=== PATIENT | female | born 1940 | race Caucasian/White ===

== ENCOUNTER 2018-02-01 13:02 | Inpatient (IN) | payer MEDICARE, OTHER ==
[~2018-02-01] VITALS: Ht 167.6 cm; Wt 55.8 kg
[~2018-02-01 13:02] MED LIST: CARAFATE1 G1 ORAL; COMPAZINE10 MG ORAL; DICYCLOMINE HCL10 MG PO; DOCUSATE SODIU100 MG ORAL; DULCOLAX10 MG RC; LINZESS145 MCG PO; LOMOTIL TABLET1 EAC1 PO; MIRALAX17 G2 ORAL; NEURONTIN600 MG ORAL; OMEPRAZOLE20 M2 ORAL; OXYBUTYNIN CHLO10 MG PO; REMERON30 MG ORAL; ROXICODONE15 MG ORAL; TRAZODONE HCL50 MG ORAL; VITAMIN D1000 UNI1 ORAL; XANAX1 MG ORAL; ZOFRAN4 M3 ORAL
[2018-02-01 13:30] VITALS: BP 106/65
[2018-02-01] MEDS ORDERED: Miralax 17gm pkt ORAL PRN (15:32)
[2018-02-01] MEDS ORDERED: oxyCODONE HCL/Acetaminophen 5/325mg ORAL PRN (15:34)
--- NOTE | 2018-02-01 15:39 | Diagnostic Imaging Report ---
Indication: Trauma right knee pain and hip pain Technique: Continuous helical imaging of the right knee was performed in the transaxial plane. Coronal 2-D reformatted images were also generated. Study obtained in a Siemens Sensation [address] total DLP: 954.1 mGycm CTD/vol: 13.99,15.26 mGy Comparison: None Findings: There is no obvious acute fracture identified. There is a lateral compression plate and several screws in the distal femoral shaft extending to the condyles. The bones are osteopenic. There is no obvious malalignment. There is significant limitation due to streak artifact. IMPRESSION: No obvious acute fracture. Significant limitation due to streak artifact. Given the degree of artifact, plain film evaluation is recommended. The CT scanner at [facility] is accredited by the [employer] and the scans are performed using dose optimization techniques as appropriate to a performed exam including Automatic Exposure control.
--- NOTE | 2018-02-01 15:42 | Diagnostic Imaging Report ---
Indication: Hip pain Technique: continuous helical imaging in the transaxial plane was performed from the iliac crests to the pubic symphysis with attention to the right hip. Coronal 2-D reformatted images were also generated. Study obtained in a Siemens Sensation [address] total DLP: 954.1 mGycm CTD/vol: 13.99,15.26 mGy Comparison: None Findings: There is no evidence of an acute fracture or significant malalignment identified on this examination. Right cemented total hip prosthesis noted. There is suspicion of a periprosthetic fracture involving the right proximal femur. The fracture is seen in an oblique fashion from just below the femoral stem extending upwards to the subtrochanteric region in a nondisplaced fashion. The bones are osteopenic. No additional fractures are appreciated. Degenerative changes of the visualized lower lumbar spine demonstrated. There is an old fracture of the right pubis. Incidental findings include diverticula throughout the colon and calcification of the aortoiliac vessels. Atrophic uterus noted. IMPRESSION: Acute periprosthetic fracture of the right hip involving the proximal shaft and subtrochanteric region. Total hip prosthesis noted.. The CT scanner at [facility] is accredited by the [employer] and the scans are performed using dose optimization techniques as appropriate to a performed exam including Automatic Exposure control.
[2018-02-01] MEDS: Dicyclomine HCl 10mg/5ml oral soln ORAL PRN (15:51)
[2018-02-01 16:00] VITALS: BP 124/59
[2018-02-01] MEDS: ALPRAZolam 0.25mg tab ORAL PRN (19:46)
[2018-02-01 20:10] VITALS: BP 90/51
[2018-02-01] MEDS: TraZODone 50mg tab ORAL SCH (21:21)
[2018-02-01] MEDS: Heparin 5000 units/ml inj SUBQ SCH (21:56)
[2018-02-01] MEDS: Lyrica 75mg cap ORAL SCH (23:51)
[2018-02-02 00:09] VITALS: BP 113/56
--- NOTE | 2018-02-02 01:00 | Consultation ---
DATE OF CONSULTATION: 02/01/2018 CARDIOLOGY CONSULTATION CONSULTING PHYSICIAN: Reji Gomes M.D. REQUESTING PHYSICIAN: Rick Kay M.D. REASON FOR CONSULTATION: Preoperative cardiovascular evaluation. HISTORY OF PRESENT ILLNESS: This is a 77-year-old white female with prior history of right hip fracture with the prosthesis, who was seen by Dr. Kay today complaining of increasing pain of her right knee area. She was admitted to the hospital after also noting a fall with possible syncopal component. Her diagnostic studies included a CAT scan of the hip and knee, which revealed a periprosthetic acute fracture on the right hip. Orthopedic surgery is anticipated. Cardiovascular risk assessment is requested. PAST MEDICAL HISTORY: Osteoarthritis, osteoporosis, status post right hip replacement, fibromyalgia, peripheral neuropathy, hypertension, depression, anxiety, neurosis, history of stress incontinence, and status post cholecystectomy. MEDICATIONS: Prior to admission, reviewed and reconciled. ALLERGIES: Hydrocodone. SOCIAL HISTORY: Nonsmoker. No alcohol or substance abuse. FAMILY HISTORY: Noncontributory. REVIEW OF SYSTEMS: No fevers or chills. No loss of vision or hearing. No additional chest pain. No palpitations. Not clear that she lost consciousness, thinks she just "fell," because she lost her footing. She has nausea and vomiting. No melena or bright red blood per rectum. No change in bowel habits. She is incontinent, but this is not a new problem. There is no history of seizure or stroke. There is no history of diabetes or thyroid disorder. PHYSICAL EXAMINATION: VITAL SIGNS: Blood pressure 124/59, heart rate 63, respirations 18, and afebrile. HEENT: Normocephalic and atraumatic. Conjunctivae are pink. Sclerae are anicteric. Oropharynx clear. Mucous membranes moist. NECK: Supple. Jugular venous pressure is normal. LUNGS: Clear. CARDIAC: Regular rhythm and rate. Normal S1 and S2 with no murmur, rub, or gallop. ABDOMEN: Soft and nontender. EXTREMITIES: Good pulses. No edema. There is no bruising or open wound sites noted. LABORATORY DATA: EKG are pending. IMPRESSION: 1. Apparent acute periprosthetic right hip fracture. 2. History of hypertension. 3. History suggest flow-limiting coronary artery disease. 4. No signs of acute respiratory insufficiency. The patient is likely an acceptable candidate for orthopedic surgery without any increased perioperative cardiopulmonary risk under general anesthesia for her age group. FINAL RECOMMENDATIONS: We will follow once electrocardiogram, chest x-ray, and laboratory studies are available. Reji Gomes M.D. DR: RUBY JOB#: [id number] CC:
[2018-02-02] MEDS: ALPRAZolam 0.25mg tab ORAL PRN ×2 (03:58→16:22)
[2018-02-02 04:00] VITALS: BP 116/59
[2018-02-02] MEDS: Lyrica 75mg cap ORAL SCH ×2 (05:56→12:06)
[2018-02-02 06:14] LABS: BASOPHILS % (AUTO) 1.2 % (0.0-2.0); EOSINOPHILS % (AUTO) 4.3 % (0.0-3.0); HEMATOCRIT 35.8 % (37.0-47.0); HEMOGLOBIN 11.7 G/DL (12.0-16.0); MEAN CORPUSCULAR VOLUME 94 FL (80-99); MONOCYTES % (AUTO) 7.4 % (1.0-10.0); PLATELET COUNT 197 K/UL (150-450); RED BLOOD COUNT 3.81 M/UL (4.20-5.40); RED CELL DISTRIBUTION WIDTH 12.1 % (11.6-14.8); WHITE BLOOD COUNT 6.8 K/UL (4.8-10.8)
[2018-02-02 06:32] LABS: ALBUMIN 3.3 G/DL (3.4-5.0); ALKALINE PHOSPHATASE 74 U/L (46-116); ANION GAP 8 mmol/L (5-15); ASPARTATE AMINO TRANSFERASE 11 U/L (15-37); BILIRUBIN,TOTAL 0.4 MG/DL (0.2-1.0); BLOOD UREA NITROGEN 22 mg/dL (7-18); CALCIUM 9.4 MG/DL (8.5-10.1); CARBON DIOXIDE 28 MMOL/L (21-32); CHLORIDE 106 MMOL/L (98-107); CREATININE 0.7 MG/DL (0.55-1.30); SODIUM 142 MMOL/L (136-145)
[2018-02-02 06:42] LABS: ALANINE AMINOTRANSFERASE 16 U/L (12-78)
[2018-02-02 08:00] VITALS: BP 96/53
[2018-02-02] MEDS: Vitamin D 1000 IU Tab ORAL SCH (08:42)
[2018-02-02] MEDS: Heparin 5000 units/ml inj SUBQ SCH ×2 (08:45→23:12)
[2018-02-02] MEDS ORDERED: Docusate 100mg cap ORAL SCH (09:00)
--- NOTE | 2018-02-02 11:10 | Diagnostic Imaging Report ---
Indication: Dyspnea Comparison: 09/01/2016 A single view chest radiograph was obtained. Findings: No definite infiltrate or pulmonary vascular congestion identified. The heart is enlarged. The aorta is mildly enlarged consistent with atherosclerotic vascular disease. The bones are osteopenic. Impression: No acute disease
[2018-02-02 12:00] VITALS: BP 96/55
[2018-02-02] MEDS: Dicyclomine HCl 10mg/5ml oral soln ORAL PRN (12:07)
[2018-02-02 16:00] VITALS: BP 97/58
[2018-02-02] MEDS ORDERED: Lyrica 75mg cap ORAL SCH (18:45)
[2018-02-02] MEDS: Docusate 100mg cap ORAL SCH (18:50)
[2018-02-02 20:00] VITALS: BP 92/52
[2018-02-02] MEDS: HYDROcodone/Acetamin 10/325 tab ORAL PRN (22:33)
--- NOTE | 2018-02-02 23:01 | History and Physical Report ---
DATE OF ADMISSION: 02/01/2018 CHIEF COMPLAINT: Hip pain and knee pain. HISTORY OF PRESENT ILLNESS: The patient is a pleasant 77-year-old female. She has a history of chronic pain. She has a prior history of right femur fracture as well as a partial hip replacement on the right side. She has a history of chronic pain, osteoarthritis, depression, and anxiety. She presented to the office for complaints of generalized pain according to the patient and her accompanying nurse. She apparently had an episode where she fell onto her left buttocks. She was trying to reach for something in the closet. She denies any head trauma. The patient did have worsening pain in the right knee and the right hip for the last week, and then she presented to my office. After discussion with the patient and the patient's facility, she was noted to have significantly more pain and to be functionally weaker. She was directly admitted. On evaluation here, CT scan of the hip shows a periprosthetic hip fracture. The patient is otherwise without complaints. Denies fevers or chills. No chest pain. No shortness of breath. No heart palpitations. PAST MEDICAL HISTORY: As above. PAST SURGICAL HISTORY: As above. CURRENT MEDICATIONS: Reconciled and reviewed. ALLERGIES: Include aspirin, clarithromycin, penicillin, and sulfa. FAMILY HISTORY: Noncontributory. SOCIAL HISTORY: There is no known history of tobacco, ethanol, or drugs. REVIEW OF SYSTEMS: GENERAL: No fever or chills. HEENT: No headaches or visual changes. CARDIOPULMONARY: No chest pain or shortness of breath. GASTROINTESTINAL: No nausea or vomiting. GENITOURINARY: No urgency or frequency. MUSCULOSKELETAL: Positive joint pains, mostly the right knee and right hip. NEUROLOGIC: No evidence of seizures. PHYSICAL EXAMINATION: VITAL SIGNS: Temperature 97.6, pulse 64, respirations 20, and blood pressure 96/53. GENERAL: The patient is a well-developed, thin, chronically ill-appearing female, in no apparent distress. She is awake, alert, and oriented x4. NECK: Supple. HEART: Regular rate and rhythm. LUNGS: Lungs are clear. ABDOMEN: Soft, nontender, and nondistended. EXTREMITIES: Without clubbing or cyanosis. The patient has pain in the right hip and right knee. The right knee appears somewhat swollen. Passive and active range of motion is limited mostly due to pain. LABORATORY AND DIAGNOSTIC DATA: White count 7, hemoglobin 11, hematocrit 35, platelet count of 197,000. Sodium 142, potassium is 4, and creatinine was 0.7. INR was 1. ASSESSMENT: This is am unfortunate female, admitted with complaints of right periprosthetic hip fracture. PROBLEM LIST: 1. Right periprosthetic hip fracture. 2. History of chronic pain. 3. Fibromyalgia. 4. Osteoarthritis. 5. Anxiety. PLAN: Cardiology clearance. Follow up EKG. Orthopedics consultation was obtained. Results were discussed with the patient as well as the patient's son over the phone. The patient likely will need surgery. We are currently awaiting Orthopedics evaluation. Rick Kay M.D. DR: DIANE JOB#: [id number] CC:
[2018-02-02] MEDS: TraZODone 50mg tab ORAL SCH (23:11)
--- NOTE | 2018-02-02 23:46 | Progress Note ---
DATE: 02/02/2018 CARDIOLOGY PROGRESS NOTE SUBJECTIVE: The patient has complaints of pain. No shortness of breath. No chest pain. OBJECTIVE: VITAL SIGNS: Blood pressure 96/53, pulse 64, respiratory rate 20, and afebrile. NECK: Supple. LUNGS: Clear. CARDIAC: Regular. Normal S1, S2. ABDOMEN: Soft. EXTREMITIES: No edema. LABORATORY AND DIAGNOSTIC DATA: EKG reveals sinus rhythm with no abnormalities. White count 6.8, hemoglobin 11.7. Chemistry panel within normal limits. Albumin 3.3, BUN 22. Chest x-ray reveals no acute process. IMPRESSION: 1. Periprosthetic hip fracture on the right. 2. Mild prerenal azotemia. 3. Low blood pressure due to pain medications. 4. No signs of hemodynamically significant structural heart disease. PLAN: 1. Stable for orthopedic surgery with general anesthesia and no anticipated increase in perioperative cardiopulmonary risk. 2. Continue DVT prophylaxis. 3. Volume support by IV route and pain control with respiratory hygiene. Reji Gomes M.D. DR: JAYLENE JOB#: [id number] CC:
[2018-02-03] VITALS: BP 113/58
--- NOTE | 2018-02-03 01:46 | Consultation ---
DATE OF CONSULTATION: 02/02/2018 CONSULTING PHYSICIAN: Rivera Peterson M.D. REASON FOR CONSULTATION: Right thigh pain. HISTORY OF PRESENT ILLNESS: The patient is a 77-year-old female, who several years ago underwent a surgery for right hip fracture. She had a cemented femoral component placed. She subsequently in 2012 sustained a distal femur fracture for which she had open reduction and internal fixation. Since 2013 surgery, the patient reports she has had continued pain and inability to walk properly. As a result of this, she reports she was getting something from her closet eight days ago when she had a mechanical fall. She subsequently had pain, went to the emergency room at an outside facility where she was apparently told that there was no fracture. She subsequently had continued pain, went to see Dr. Kay, who subsequently sent her to the emergency room where a CAT scans revealed a right periprosthetic femur fracture. I was subsequently consulted. The patient reports her pain is isolated in the right thigh region. She also has pain in the right knee joint. PAST MEDICAL HISTORY: Significant for fibromyalgia, peripheral neuropathy, hypertension, depression, anxiety neurosis, and history of stress incontinence. PAST SURGICAL HISTORY: As above. MEDICATIONS: Well documented in the medical chart. ALLERGIES: Hydrocodone. PHYSICAL EXAMINATION: GENERAL: This is an elderly patient, in no acute distress. VITAL SIGNS: Temperature 97.6, pulse 65, and blood pressure 97/58. EXTREMITIES: Evaluation of the right lower extremity reveals no significant swelling in the right thigh. She does have tenderness along the proximal femur to palpation. She has tenderness in the right proximal femur. There is range of motion of the right hip and right knee. There is a laterally based incision along the distal femur, which is fully healed. There is no erythema or warmth around the right knee joint. The calf is soft. She has intact motor and sensory function of the right foot. RADIOLOGIC DATA: There are no x-rays available for review. A CT scan of the right hip was reviewed. There is evidence of a right hip hemiarthroplasty with a cemented femoral component. There appears to be a nondisplaced fracture line, which starts at the tip of the femoral prosthesis works its way proximally and exists laterally in the subtrochanteric region. The fracture is nondisplaced. The femoral prosthesis does appear to be well fixed. More distally, there is what appears to be a distal femoral plate with a distal femur fracture, which is well fixed and well healed. There is no acute fracture distally. IMPRESSION: Right periprosthetic femur fracture. PLAN: At the present time, the fracture appears to be nondisplaced and the femoral component appears to be well fixed. I would recommend non-operative treatment of this fracture with touchdown weightbearing and physical therapy for consultation along with pain control. If the fracture continues to be nondisplaced, I do think it will heal over a period of 6 to 8 weeks or if there is any displacement or continued severe pain in the future, which could mean that the fracture is not healing, she may need surgical intervention in the future. I did discuss this in detail with the patient and her son. So, at the present time, I would recommend non-operative treatment of this fracture. Rivera Peterson M.D. DR: EMIR JOB#: [id number] CC:
[2018-02-03] MEDS ORDERED: Lyrica 75mg cap ORAL SCH ×2 (02:00→08:30)
[2018-02-03 04:00] VITALS: BP 113/57
--- NOTE | 2018-02-03 07:27 | General Progress Note ---
Assessment/Plan Problem List: (1) Hip fracture ICD Codes: S72.009A - Fracture of unspecified part of neck of unspecified femur , initial encounter for closed fracture SNOMED: 339592178 Status: stable Assessment/Plan pain rx adjusted toe touch only needs snf Subjective ROS Limited/Unobtainable: No Constitutional: Reports: malaise, weakness HEENT: Reports: no symptoms Cardiovascular: Reports: no symptoms Respiratory: Reports: no symptoms Gastrointestinal/Abdominal: Reports: no symptoms Genitourinary: Reports: no symptoms Neurologic/Psychiatric: Reports: anxiety Endocrine: Reports: no symptoms Hematologic/Lymphatic: Reports: no symptoms Allergies: Coded Allergies: ASPIRIN (Verified Allergy, Unknown, 09/01/16) CLARITHROMYCIN (Verified Allergy, Unknown, 09/01/16) PENICILLINS (Verified Allergy, Unknown, 09/01/16) SULFA (SULFONAMIDE ANTIBIOTICS) (Verified Allergy, Unknown, 09/01/16) All Systems: reviewed and negative except above Subjective orthopedics appreciated. pt requested change of pain rx to norco. pain not well controlled. Objective Last 24 Hour Vital Signs Date Time Temp Pulse Resp B/P (MAP) Pulse Ox O2 Delivery O2 Flow Rate FiO2 02/03/18 04:00 97.6 78 18 113/57 93 Room Air 97.6 02/03/18 00:00 97.6 66 20 113/58 94 Room Air 97.6 02/02/18 23:10 97.8 02/02/18 20:00 97.8 67 16 92/52 94 Room Air 97.8 02/02/18 16:00 97.6 65 17 97/58 96 97.6 02/02/18 12:00 97.0 66 16 96/55 97 97.0 02/02/18 08:00 97.6 64 20 96/53 96 Room Air 97.6 Intake and Output 02/02/18 02/03/18 19:00 07:00 Intake Total 650 ml 500 ml Output Total 600 ml Balance 650 ml -100 ml Intake Oral 250 ml 500 ml IV Total 400 ml Output Urine Total 600 ml # Voids 1 Height (Feet): 5 Height (Inches): 6.00 Weight (Pounds): 123 General Appearance: WD/WN Neck: supple Cardiovascular: regular rhythm Respiratory/Chest: chest wall non-tender, lungs clear, normal breath sounds Abdomen: normal bowel sounds, non tender, soft, no organomegaly Edema: no edema noted Arm (L), no edema noted Arm (R), no edema noted Leg (L), no edema noted Leg (R), no edema noted Pedal (L), no edema noted Pedal (R), no edema noted Generalized CHANTALE SMITH February 03, 2018 07:27
[2018-02-03 08:00] VITALS: BP 118/65
[2018-02-03] MEDS: ALPRAZolam 0.25mg tab ORAL PRN ×2 (08:21→17:18)
[2018-02-03] MEDS: Vitamin D 1000 IU Tab ORAL SCH (08:21)
[2018-02-03] MEDS: Dicyclomine HCl 10mg/5ml oral soln ORAL PRN (11:00)
[2018-02-03] MEDS: Docusate 100mg cap ORAL SCH ×2 (11:21→17:18)
[2018-02-03] MEDS: Heparin 5000 units/ml inj SUBQ SCH (11:22)
[2018-02-03 12:00] VITALS: BP 109/67
[2018-02-03] MEDS: Lyrica 75mg cap ORAL SCH ×2 (13:50→20:51)
[2018-02-03 16:00] VITALS: BP 114/58
[2018-02-03 20:48] VITALS: BP 131/70
[2018-02-03] MEDS: TraZODone 50mg tab ORAL SCH (21:00)
[2018-02-03] MEDS ORDERED: Heparin 5000 units/ml inj SUBQ SCH (21:00)
[2018-02-04] VITALS (7 sets, daily range): BP systolic 119–142; BP diastolic 62–82
[2018-02-04] MEDS: Lyrica 75mg cap ORAL SCH ×4 (02:43→20:30)
--- NOTE | 2018-02-04 08:00 | General Progress Note ---
Assessment/Plan Problem List: (1) Hip fracture ICD Codes: S72.009A - Fracture of unspecified part of neck of unspecified femur , initial encounter for closed fracture SNOMED: 238216901 Status: stable, progressing Assessment/Plan pain rx adjusted toe touch only nonsurgical rx dvt prophylaxis needs snf Subjective ROS Limited/Unobtainable: No Constitutional: Reports: malaise, weakness HEENT: Reports: no symptoms Cardiovascular: Reports: no symptoms Respiratory: Reports: no symptoms Gastrointestinal/Abdominal: Reports: no symptoms Genitourinary: Reports: no symptoms Neurologic/Psychiatric: Reports: no symptoms Endocrine: Reports: no symptoms Hematologic/Lymphatic: Reports: no symptoms Allergies: Coded Allergies: ASPIRIN (Verified Allergy, Unknown, 09/01/16) CLARITHROMYCIN (Verified Allergy, Unknown, 09/01/16) PENICILLINS (Verified Allergy, Unknown, 09/01/16) SULFA (SULFONAMIDE ANTIBIOTICS) (Verified Allergy, Unknown, 09/01/16) All Systems: reviewed and negative except above Subjective no events. c/o pain. currently resting. pain appears well controlled. Objective Last 24 Hour Vital Signs Date Time Temp Pulse Resp B/P (MAP) Pulse Ox O2 Delivery O2 Flow Rate FiO2 02/04/18 04:54 97.7 71 18 127/74 95 97.7 02/04/18 00:00 97.6 69 17 126/68 95 97.6 02/03/18 20:48 97.7 78 18 131/70 94 97.7 02/03/18 18:55 97.6 02/03/18 16:07 97.6 02/03/18 16:00 97.4 70 19 114/58 92 Room Air 97.4 02/03/18 15:08 97.6 02/03/18 14:49 97.6 02/03/18 13:50 97.6 02/03/18 12:00 97.2 71 19 109/67 92 Room Air 97.2 02/03/18 11:00 97.6 02/03/18 09:21 97.6 02/03/18 08:22 97.6 02/03/18 08:00 97.6 69 18 118/65 92 Room Air 97.6 Intake and Output 02/03/18 02/04/18 19:00 07:00 Intake Total 1650 ml 1580 ml Balance 1650 ml 1580 ml Intake Oral 360 ml 480 ml IV Total 1290 ml 1100 ml # Voids 2 12 Height (Feet): 5 Height (Inches): 6.00 Weight (Pounds): 123 General Appearance: WD/WN, alert Neck: supple Cardiovascular: normal rate, regular rhythm Respiratory/Chest: chest wall non-tender, lungs clear, normal breath sounds Edema: no edema noted Arm (L), no edema noted Arm (R), no edema noted Leg (L), no edema noted Leg (R), no edema noted Pedal (L), no edema noted Pedal (R), no edema noted Generalized CAHNTALE SMITH February 04, 2018 08:00
[2018-02-04] MEDS: Docusate 100mg cap ORAL SCH ×2 (08:56→18:00)
[2018-02-04] MEDS: Vitamin D 1000 IU Tab ORAL SCH (08:56)
[2018-02-04] MEDS: Xarelto 10mg tab ORAL SCH (09:00)
[2018-02-04] MEDS ORDERED: D5 1/2NS 1000ml IV ONE (11:11)
[2018-02-04] MEDS: ALPRAZolam 0.25mg tab ORAL PRN (13:35)
[2018-02-04] MEDS: Dicyclomine HCl 10mg/5ml oral soln ORAL PRN (14:50)
[2018-02-04] MEDS: HYDROcodone/Acetamin 10/325 tab ORAL PRN ×2 (17:48→17:50)
[2018-02-04] MEDS: TraZODone 50mg tab ORAL SCH (21:00)
[2018-02-05 00:19] VITALS: BP 121/65
[2018-02-05] MEDS: Lyrica 75mg cap ORAL SCH ×4 (02:24→20:09)
--- NOTE | 2018-02-05 03:30 | Progress Note ---
DATE: 02/04/2018 CARDIOLOGY PROGRESS NOTE SUBJECTIVE: The patient's pain is better controlled. She is at bed rest. She is to remain with the toe-touch activities only for the next four to six weeks. OBJECTIVE: VITAL SIGNS: Blood pressure 127/74, pulse 71, and respirations 18. NECK: Supple. LUNGS: Clear. CARDIAC: Regular rhythm and rate. Normal S1, S2 with no murmur. ABDOMEN: Soft. EXTREMITIES: Revealed no edema. Good distal pulses. IMPRESSION: 1. Periprosthetic hip fracture on the right. 2. Acute and chronic pain. 3. Mild protein-calorie malnutrition. PLAN: 1. Maintain adequate hydration. 2. Pain control. 3. DVT prophylaxis. Reji Gomes M.D. DR: RUBY JOB#: [id number] CC:
[2018-02-05 04:38] VITALS: BP 120/71
[2018-02-05] MEDS: ALPRAZolam 0.25mg tab ORAL PRN ×3 (05:31→20:28)
[2018-02-05] MEDS ORDERED: XARELTO10 MG ORAL (07:52)
[2018-02-05] MEDS ORDERED: PERCOCET 10-321 EACH ORAL (07:52)
[2018-02-05 08:00] VITALS: BP 139/83
[2018-02-05] MEDS: Xarelto 10mg tab ORAL SCH (08:13)
[2018-02-05] MEDS: Vitamin D 1000 IU Tab ORAL SCH (08:13)
[2018-02-05] MEDS: Docusate 100mg cap ORAL SCH ×2 (08:13→18:00)
[2018-02-05 12:00] VITALS: BP 132/80
[2018-02-05 16:00] VITALS: BP 123/64
[2018-02-05 20:00] VITALS: BP 123/82
[2018-02-05] MEDS: TraZODone 50mg tab ORAL SCH (20:09)
[2018-02-05] MEDS: Dicyclomine HCl 10mg/5ml oral soln ORAL PRN (20:30)
[2018-02-06 00:37] VITALS: BP 121/73
--- NOTE | 2018-02-06 02:00 | Progress Note ---
DATE: 02/05/2018 CARDIOLOGY PROGRESS NOTE SUBJECTIVE: The patient is at bedrest. No chest pain. No shortness of breath. She continues to complain of hip pain. OBJECTIVE: VITAL SIGNS: Blood pressure 123/82, pulse 80, respiratory rate 17, and afebrile. LUNGS: Clear. CARDIAC: Regular. ABDOMEN: Soft. EXTREMITIES: No or edema. IMPRESSION: 1. Periprosthetic hip fracture on the right. 2. Immobility. 3. Deep venous thrombosis risk. 4. Acute and chronic pain. PLAN: 1. Four weeks of limited mobility. 2. Aggressive DVT prophylaxis with Lovenox. 3. Monitor clinical parameters. Reji Gomes M.D. DR: SAMANTHA JOB#: [id number] CC:
[2018-02-06] MEDS: Lyrica 75mg cap ORAL SCH ×3 (02:14→14:46)
[2018-02-06 04:22] VITALS: BP 124/68
[2018-02-06 08:00] VITALS: BP 114/65
[2018-02-06] MEDS: Docusate 100mg cap ORAL SCH ×3 (09:00→18:26)
[2018-02-06] MEDS: Xarelto 10mg tab ORAL SCH (09:13)
[2018-02-06] MEDS: Vitamin D 1000 IU Tab ORAL SCH (09:13)
[2018-02-06] MEDS: ALPRAZolam 0.25mg tab ORAL PRN ×2 (09:49→18:12)
[2018-02-06] MEDS: Dicyclomine HCl 10mg/5ml oral soln ORAL PRN ×2 (10:02→18:13)
[2018-02-06 12:00] VITALS: BP 90/59
--- NOTE | 2018-02-06 15:01 | Cardiology Report ---
APPROVED REPORT EKG Measurement Heart [id number] Normal sinus rhythm Normal ECG
[2018-02-06 16:00] VITALS: BP 115/73
--- NOTE | 2018-02-07 03:15 | Progress Note ---
DATE: 02/06/2018 CARDIOLOGY PROGRESS NOTE SUBJECTIVE: The patient has no new complaints. Pain is better controlled. Low blood pressure reading was recorded. The patient was not dizzy. OBJECTIVE: VITAL SIGNS: Blood pressure 90/59 earlier, now 115/73, heart rate 83, and respiratory rate 18. NECK: Supple. LUNGS: Clear. CARDIAC: Regular. Wound site clean. EXTREMITIES: No edema. Digits are well perfused. IMPRESSION: 1. No signs of hypoperfusion or clinically significant hypotensive episodes. 2. Stable postoperative cardiovascular parameters to proceed with rehabilitation following hip fracture. We would monitor volume status closely as well as clinically significant orthostatic signs. Discharge medication regimen reviewed and reconciled. Reji Gmoes M.D. DR: CHARLETTE JOB#: [id number] CC:
--- NOTE | 2018-02-07 04:00 | Discharge Summary ---
DATE OF ADMISSION: 02/01/2018 DATE OF DISCHARGE: 02/06/2018 ADMISSION DIAGNOSES: 1. Mechanical fall. 2. Periprosthetic right hip fracture. HOSPITAL COURSE: The patient is a pleasant female who presented to the office initially with complaints of pain in the right knee and right hip. She has prior history of partial hip replacement. She was directly admitted. She had a CAT scan of the hip that showed a periprosthetic hip fracture. Orthopedics consultation was obtained and it was recommended the patient be treated nonsurgically. The plan of care was discussed with the patient as well as the patient's son who was agreeable with nonsurgical management. She will be discharged to a long term facility for rehabilitation. She will follow up with Orthopedics in two weeks with repeat x-ray to assess her healing. She is currently toe-touch only. DISCHARGE MEDICATIONS: Please see discharge medication list for discharge medications. DIET: Regular diet. ACTIVITY: Ad-prashanth. DISPOSITION: The patient to be discharged to a long term facility and followup in one to two days. Rick Kay M.D. DR: JAYRO JOB#: [id number] CC:
== END 2018-02-06 19:35 | DRG 560 ==
LOC: 3E 13:02
DX: M97.01XA Periprosthetic fracture around internal prosthetic right hip joint, initial encounter (principal); E44.1 Mild protein-calorie malnutrition; Z68.1 Body mass index [BMI] 19.9 or less, adult; M79.7 Fibromyalgia; M19.90 Unspecified osteoarthritis, unspecified site; F41.9 Anxiety disorder, unspecified; M81.0 Age-related osteoporosis without current pathological fracture; I10 Essential (primary) hypertension; G62.9 Polyneuropathy, unspecified; F32.9 Major depressive disorder, single episode, unspecified; Z88.6 Allergy status to analgesic agent; W19.XXXA Unspecified fall, initial encounter; Y92.009 Unspecified place in unspecified non-institutional (private) residence as the place of occurrence of the external cause; Z88.0 Allergy status to penicillin; Z88.2 Allergy status to sulfonamides; N39.3 Stress incontinence (female) (male)
CPT/HCPCS: 36415; 71045; 80053; 84443; 84484; 85025; 85610; 85730; 93005

== ENCOUNTER 2019-03-11 18:00 | Inpatient (IN) | payer MEDICARE, OTHER ==
[~2019-03-11] VITALS: Ht 167.6 cm; Wt 75.5 kg
[~2019-03-11 18:00] MED LIST changes: +PERCOCET 10-321 EACH ORAL; +XARELTO10 MG ORAL
[2019-03-11 20:00] VITALS: BP 138/76
--- NOTE | 2019-03-11 20:30 | NUR ---
NURSE NOTES: Received patient from [facility], transport personnel. Patient AAO x 4. Patient breathing evenly and unlabored without signs of distress,discomfort, and SOB. Patient has cellulitis on the right knee with warmth, swelling, and redness and also past surgical scars. Otherwise skin is intact with dryness. Patient was transferred from [facility] to the bed by ambulating with staff assistance. Patient bed was placed at the lowest level with bed alarm and brakes on. Patient did not want the staff to inspect her personal belongings. All the belongings are kept by her bedside. Called for Dr. Kay to confirm the orders for the patient. Dr. Gomes received the call and confirm to continue on with the orders from [facility] and that updates will by made by Dr. Kay tomorrow morning. Call light was placed within reach. VS: 98.3 F, HR 78, RR:17, BP 138/76, O2 97 on a room air.
[2019-03-11] MEDS ORDERED: ARTIFICIAL TEA1 EAC2 OP (21:43)
[2019-03-11] MEDS ORDERED: ACETAMINOPHEN500 M5 ORAL (21:43)
[2019-03-11] MEDS ORDERED: MILK OF MA400 MG/51 ORAL (21:53)
[2019-03-11] MEDS ORDERED: OXYCODONE-ACET1 EAC3 ORAL (21:53)
[2019-03-11] MEDS ORDERED: DETROL LA4 MG ORAL (21:53)
[2019-03-11] MEDS ORDERED: MYRBETRIQ25 MG PO (21:53)
[2019-03-11] MEDS ORDERED: ASPIRIN81 MG ORAL (21:53)
[2019-03-11] MEDS ORDERED: PAXIL40 MG ORAL (21:53)
[2019-03-11] MEDS ORDERED: SUCRALFATE1 GM/10 ML PO (21:53)
[2019-03-11] MEDS ORDERED: ROBAXIN500 MG PO (21:53)
[2019-03-11] MEDS ORDERED: LYRICA75 M1 ORAL (21:53)
[2019-03-11] MEDS ORDERED: BENADRYL25 M3 PO (21:53)
[2019-03-11] MEDS ORDERED: NORCO 5-325 TA1 EACH ORAL (21:53)
[2019-03-11] MEDS ORDERED: Dicyclomine 10mg Cap ORAL PRN (22:00)
[2019-03-11] MEDS ORDERED: Milk of Magnesia 30ml Ud ORAL PRN (22:00)
[2019-03-11] MEDS ORDERED: Lacri-Lube Opth Oint 3.5gm BOTH EYES PRN (22:00)
[2019-03-11] MEDS ORDERED: Acetaminophen 500mg (ES) tab ORAL PRN (22:00)
[2019-03-11] MEDS ORDERED: Lomotil 2.5mg tab ORAL PRN (22:00)
[2019-03-11] MEDS ORDERED: HYDROcodone/Acetamin 5/325 tab ORAL PRN (22:00)
[2019-03-11] MEDS ORDERED: Docusate 100mg cap ORAL PRN (22:00)
[2019-03-11] MEDS ORDERED: Methocarbamol 500mg tab ORAL PRN (22:00)
[2019-03-11] MEDS: ALPRAZolam 0.5mg tab ORAL PRN (23:00)
[2019-03-11] MEDS: TraZODone 50mg tab ORAL SCH (23:34)
[2019-03-12] VITALS: BP 133/75
[2019-03-12] MEDS: oxyCODONE HCL/Acetaminophen 5/325mg ORAL PRN ×2 (02:03→17:30)
[2019-03-12 04:00] VITALS: BP 135/75
[2019-03-12] MEDS: Sucralfate 1gm tab ORAL SCH ×3 (05:52→16:30)
[2019-03-12] MEDS ORDERED: Morphine Sulfate 2mg/ml Inj(IV/IM USE ONLY) IVP PRN (06:30)
[2019-03-12 06:50] LABS: HEMATOCRIT 37.2 % (37.0-47.0); HEMOGLOBIN 12.1 G/DL (12.0-16.0); MEAN CORPUSCULAR VOLUME 88 FL (80-99); PLATELET COUNT 183 K/UL (150-450); RED BLOOD COUNT 4.22 M/UL (4.20-5.40); RED CELL DISTRIBUTION WIDTH 13.8 % (11.6-14.8); WHITE BLOOD COUNT 3.2 K/UL (4.8-10.8)
--- NOTE | 2019-03-12 07:35 | NUR ---
HAND-OFF: Report given to COLIN Garcia.
[2019-03-12 08:00] VITALS: BP 96/52
--- NOTE | 2019-03-12 08:07 | NUR ---
NURSE NOTES: Received report from Minsu RN. Patient is awake alert and oriented x4, no sitting up in bed eating breakfast, no acute distress noted. Patient did not rate her pain in right knee but states "it's better" and is not requesting pain medication at this time. Patient updated on plan of care for the day. Fall precautions maintained. Side rails upx3, bed low and locked, bed alarm armed, call light in reach, patient reminded to call for assistance before getting OOB. Will continue to monitor.
[2019-03-12] MEDS ORDERED: Aspirin Baby 81mg ORAL SCH (09:00)
[2019-03-12] MEDS: Heparin 5000 units/ml inj SUBQ SCH ×2 (09:37→20:55)
[2019-03-12] MEDS: Miralax 17gm pkt ORAL SCH (09:38)
[2019-03-12] MEDS: PARoxetine 20mg tab ORAL SCH (09:38)
[2019-03-12] MEDS: Vitamin D 1000 IU Tab ORAL SCH (09:38)
[2019-03-12] MEDS: Tolterodine 2mg tab ORAL SCH (09:38)
[2019-03-12] MEDS: Lyrica 75mg cap ORAL SCH ×3 (09:39→18:46)
[2019-03-12 12:00] VITALS: BP 114/68
--- NOTE | 2019-03-12 12:05 | NUR ---
CASE MANAGEMENT:REVIEW 78 YR OLD FEMALE DIRECTLY ADMITTED SI: INTRACTABLE PAIN. CELLULITIS 98.3 78 17 138/76 97% ON RA IS: PAXIL PO QD LYRICA PO TID HEPARIN SQ Q12 CARAFATE PO TID IV MORPHINE Q4HRS PRN PERCOCET PO Q6HRS PRN : DIRECTLY ADMITTED TO MED[facility]URG [facility]
--- NOTE | 2019-03-12 12:11 | NUR ---
INTERQUAL CRITERIA MET FOR OBSERVATION
[2019-03-12 16:00] VITALS: BP 106/60
--- NOTE | 2019-03-12 16:53 | NUR ---
NURSE NOTES: Patient has refused all x-rays and venous duplex. Explained to patient the risks of refusing both, patient reports she understands the risks, but still refuses both.
--- NOTE | 2019-03-12 17:15 | History and Physical Report ---
DATE OF ADMISSION: 03/11/2019 CHIEF COMPLAINT: Right-sided chest pain, right leg pain and swelling, intractable pain. HISTORY OF PRESENT ILLNESS: The patient is a 78-year-old female, well known to me. She has a history of degenerative disk disease and osteoarthritis. She is status post right hip revision and right total knee replacement several months ago. She had been doing relatively well until recently when she had worsening pain in the right leg. She was unable to participate in any therapy. She complained of right-sided chest pain as well as some shortness of breath. The symptoms have been intermittent, but the right leg; thigh pain has gotten worse to the point where the patient has been unable to ambulate or bear any weight. She denies any trauma. No fevers or chills. In light of her intractable pain, she is admitted for further evaluation and care. PAST MEDICAL HISTORY: As above. History of fibromyalgia. PAST SURGICAL HISTORY: Includes history of hip ORIF, knee replacement surgery. CURRENT MEDICATIONS: Reconciled and reviewed. ALLERGIES: , penicillin, and sulfa. FAMILY HISTORY: Noncontributory. SOCIAL HISTORY: The patient denies any history of tobacco, ethanol, or drugs. REVIEW OF SYSTEMS: GENERAL: No fever or chills. HEENT: No headaches or visual changes. CARDIOPULMONARY: Positive right-sided chest pain. Mild shortness of breath. GASTROINTESTINAL: No nausea or vomiting. GENITOURINARY: No urgency or frequency. MUSCULOSKELETAL: Positive right knee pain and hip pain. NEUROLOGIC: No evidence of seizures. PHYSICAL EXAMINATION: VITAL SIGNS: Temperature 98.3, pulse of 78, respirations 17, and blood pressure 132/76. GENERAL: The patient is a well-developed female, in moderate amount of distress. She is somewhat somnolent and sleepy and slow to respond to questions. HEENT: Her pupils are equal, round, and reactive to light . NECK: Supple. HEART: Regular rate and rhythm. LUNGS: Clear. ABDOMEN: Soft, nontender, and nondistended. EXTREMITIES: Without clubbing or cyanosis. The patient has severe pain with any range of motion in the right hip and knee. LABORATORY DATA: Labs are pending. ASSESSMENT: This is a 78-year-old female complaints of severe intractable pain, unclear etiology with concern about a possible new fracture, doubt a septic arthritis. PLAN: 1. X-rays of the right hip and knee. 2. IV pain medications around the clock. 3. Consider pain management consultation. 4. Check venous duplex of the legs. 5. Follow up troponin level. 6. Orthopedic consultation. Rick Kay M.D. DR: MADDY JOB#: [id number] CC:
[2019-03-12 19:21] LABS: APPEARANCE,URINE CLOUDY; BILIRUBIN, URINE NEGATIVE (NEGATIVE); GLUCOSE, URINE (UA) NEGATIVE (NEGATIVE); KETONES,URINE NEGATIVE (NEGATIVE); LEUKOCYTE ESTERASE ,URINE 2+ (NEGATIVE); NITRITE,URINE NEGATIVE (NEGATIVE); PH,URINE 6.5 (4.5-8.0); PROTEIN,URINE NEGATIVE (NEGATIVE); UROBILINOGEN,URINE 1 MG/DL (0.0-1.0)
[2019-03-12 19:23] LABS: COLOR,URINE YELLOW
--- NOTE | 2019-03-12 19:32 | NUR ---
HAND-OFF: Report given to Minsu RN. Patient is in stable condition.
--- NOTE | 2019-03-12 19:41 | NUR ---
NURSE NOTES: Received patient from COLIN Garcia. Patient was sleeping but woke up when I entered. Patient laying on the bed comfortably with HOB elevated and right knee elevated for comfort. Patient AAO x 4. Patient is breathing evenly and unlabored without signs of distress, discomfort, or SOB. Patient right knee is swollen, warm to touch, with redness and with other past surgical scars visible. Otherwise, patient skin is intact. Patient did verbalize that her pain is 9-8 after pain medication. This is "manageable pain" according to the patient. Will provide other comfort measures to help elevate her pain levels. Patient has left forearm 22 g saline locked. Patient has bedside commode on the side. Bed is placed at the lowest with alarm and brakes on. Call light is placed within reach for any assistance needed. Will continue to monitor.
[2019-03-12 20:00] VITALS: BP 141/78
[2019-03-12] MEDS: TraZODone 50mg tab ORAL SCH (20:53)
[2019-03-12] MEDS: ALPRAZolam 0.5mg tab ORAL PRN (21:22)
[2019-03-13] VITALS: BP 146/82
[2019-03-13 04:00] VITALS: BP 141/72
[2019-03-13] MEDS: Sucralfate 1gm tab ORAL SCH ×3 (06:01→16:30)
[2019-03-13] MEDS: oxyCODONE HCL/Acetaminophen 5/325mg ORAL PRN ×2 (06:08→15:19)
--- NOTE | 2019-03-13 07:18 | NUR ---
HAND-OFF: Report given to COLIN Bear.
--- NOTE | 2019-03-13 07:23 | NUR ---
NURSE NOTES: RN received pt in stable condition, sleeping in bed. No acute distress or SOB. Bed in low, locked position, call light within reach. Will continue plan of care.
[2019-03-13 08:00] VITALS: BP 146/72
--- NOTE | 2019-03-13 08:28 | General Progress Note ---
Assessment/Plan Problem List: (1) possible knee and hip fx (2) Hip fracture ICD Codes: S72.009A - Fracture of unspecified part of neck of unspecified femur , initial encounter for closed fracture SNOMED: 967139777 (3) Intractable pain ICD Codes: R52 - Pain, unspecified SNOMED: 16543111 Status: stable, progressing Assessment/Plan: await vascular studies await xray studies pain rx Subjective ROS Limited/Unobtainable: No Constitutional: Reports: malaise, weakness HEENT: Reports: no symptoms Cardiovascular: Reports: no symptoms Respiratory: Reports: no symptoms Gastrointestinal/Abdominal: Reports: no symptoms Neurologic/Psychiatric: Reports: no symptoms Endocrine: Reports: no symptoms Hematologic/Lymphatic: Reports: no symptoms Allergies: Coded Allergies: ASPIRIN (Verified Allergy, Unknown, 09/01/16) CLARITHROMYCIN (Verified Allergy, Unknown, 09/01/16) PENICILLINS (Verified Allergy, Unknown, 09/01/16) SULFA (SULFONAMIDE ANTIBIOTICS) (Verified Allergy, Unknown, 09/01/16) All Systems: reviewed and negative except above Subjective no severe leg pain. refused venous jazzy and xray because they came early but they never came back Objective Last 24 Hour Vital Signs Date Time Temp Pulse Resp B/P (MAP) Pulse Ox O2 Delivery O2 Flow Rate FiO2 03/13/19 04:00 96.8 83 14 141/72 (95) 93 03/13/19 00:00 97.0 89 16 146/82 (103) 92 03/12/19 21:00 Room Air 03/12/19 20:00 97.1 69 16 141/78 (99) 93 03/12/19 16:00 97.7 93 20 106/60 (75) 93 03/12/19 12:00 97.3 74 18 114/68 (83) 92 03/12/19 09:00 Room Air Intake and Output 03/12/19 03/13/19 19:00 07:00 Intake Total 740 ml 360 ml Balance 740 ml 360 ml Intake Oral 740 ml 360 ml # Voids 3 2 # Bowel Movements 1 Laboratory Tests 03/12/19 18:45: Urine Color Yellow, Urine Appearance Cloudy, Urine pH 6.5, Urine Specific [place] 1.010, Urine Protein Negative, Urine Glucose (UA) Negative, Urine Ketones Negative, Urine Blood 2+H, Urine Nitrite Negative, Urine Bilirubin Negative, Urine Urobilinogen 1H, Urine Leukocyte Esterase 2+H, Urine RBC 2-4H, Urine WBC 15-20H, Urine Squamous Epithelial Cells Occasional, Urine Bacteria ManyH Height (Feet): 5 Height (Inches): 6.00 Weight (Pounds): 166 General Appearance: WD/WN, alert Neck: supple Cardiovascular: normal peripheral pulses, normal rate, regular rhythm Respiratory/Chest: chest wall non-tender, lungs clear, normal breath sounds Abdomen: normal bowel sounds, non tender, soft, no organomegaly Edema: no edema noted Arm (L), no edema noted Arm (R), no edema noted Leg (L), no edema noted Leg (R), no edema noted Pedal (L), no edema noted Pedal (R), no edema noted 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
[2019-03-13] MEDS: Miralax 17gm pkt ORAL SCH (09:00)
[2019-03-13] MEDS: Lyrica 75mg cap ORAL SCH ×3 (09:18→18:08)
[2019-03-13] MEDS: Tolterodine 2mg tab ORAL SCH (09:18)
[2019-03-13] MEDS: PARoxetine 20mg tab ORAL SCH (09:19)
[2019-03-13] MEDS: Vitamin D 1000 IU Tab ORAL SCH (09:19)
[2019-03-13] MEDS: Heparin 5000 units/ml inj SUBQ SCH ×2 (09:28→21:00)
--- NOTE | 2019-03-13 09:35 | NUR ---
NURSE NOTES: Pt stated she was in pain and requested PRN Percocet. RN went to remove med from Pyxis and verified it was pulled out of Pyxis at 0606 - not scanned in eMar. RN asked pt if she received Percocet in AM and she confirmed, yes. Med not scanned in eMar. RN will not pull out or administer until Q4 hours is reached in Pyxis.
--- NOTE | 2019-03-13 11:24 | NUR ---
NURSE NOTES: Pt has home medication - antacid at bedside. Pt refusing to give client analyst. Charge nurse made aware. RN will inform MD.
[2019-03-13 12:00] VITALS: BP 129/64
--- NOTE | 2019-03-13 12:09 | Diagnostic Imaging Report ---
Indication: Hip and pelvic pain Technique: One view of the pelvis, 2 views of both hips Comparison: Right hip CT scan dated 02/01/2018 Findings: On the pelvic view, patient is slightly rotated the right. There is extensive right hip hardware noted. Since prior study, there has been interim replacement of the prior hip hemiarthroplasty prosthesis with total hip arthroplasty prosthesis, longer femoral stem, placement of cerclage wires along the proximal femoral shaft. Hardware in the distal femur was also present on prior 02/01/[address] There is a strip of cortical bone and lateral to the femoral shaft and extending also lateral to the knee hardware. This is not evident on previous exams. This appears to be surrounded by several cerclage wires. Intertrochanteric/subtrochanteric region fracture line persists but the underlying hardware is intact. The bones are profoundly osteoporotic. No definite acute fracture otherwise. The left hip joint space is preserved. No evidence of left-sided acute bony trauma Impression: Postsurgical changes of the right hip and femur, revised since prior CT scan of 02/01/2018 which at that time showed a periprosthetic fracture. There is a strip of cortical bone along the right side of the femur which is from the more inner cortical bone. This may represent some sort of graft, as it is surrounded by cerclage wires and not evident on previous studies. Correlation with prior surgical history is recommended. No definite acute bony trauma. Note, however, that in the setting of profound osteoporosis, plain radiographic evaluation for nondisplaced fracture is.
--- NOTE | 2019-03-13 14:37 | Diagnostic Imaging Report ---
Indication: Knee pain Technique: 2 views of the right knee Comparison: No comparison plain radiographs. Reference made to knee CT scan dated 02/01/2019 Findings: There is a lateral sideplate and screws reducing old healed distal femoral fracture, which is also evident on the prior CT scan. Interim placement of a total knee arthroplasty prosthesis. The knee prosthesis hardware appears well aligned and intact. No definite acute fractures there is a cortical appearing opacity projected peripheral to and extending cephalad from the distal femur which may represent prosthetic material. What are probably dystrophic calcifications are seen inferior to the patella within the soft tissues. Impression: Extensive postsurgical changes, as described. No definite acute bony trauma.
[2019-03-13 16:00] VITALS: BP 144/75
--- NOTE | 2019-03-13 16:01 | NUR ---
CASE MANAGEMENT:REVIEW 03/13/19 SI: INTRACTABLE PAIN POSSIBLE KNEE AND HIP FRACTURE 98.0 75 18 129/64 94% ON RA IS: PAXIL PO QD LYRICA PO TID DETROL PO QD PEPCID PO QD HEPARIN SQ Q12 CARAFATE PO TID AC PERCOCET PO Q6HRS : TELEMETRY STATUS
[2019-03-13] MEDS: ALPRAZolam 0.5mg tab ORAL PRN (18:17)
--- NOTE | 2019-03-13 18:30 | NUR ---
NURSE NOTES: RN asked pt if son visited and brought in home mediations. Pt responded that she has doesn't know what I'm taking about stating "who told you that".
--- NOTE | 2019-03-13 19:34 | NUR ---
HAND-OFF: Report given to COLIN Santamaria.
--- NOTE | 2019-03-13 19:35 | NUR ---
NURSE NOTES: Received pt from Marianela SHAW. pt is AOx4. Pt is on room air with no SOB or acute respiratory distress noted at this time. Pt has intact iv access LFA 22G SL All needs attended to , bed is locked and is in the lowest position, call light is within reach. Will continue to monitor and follow plan of care.
[2019-03-13 20:00] VITALS: BP 143/80
[2019-03-13] MEDS: TraZODone 50mg tab ORAL SCH (21:00)
[2019-03-13] MEDS ORDERED: Tums 500mg ORAL PRN (21:00)
[2019-03-14] VITALS: BP 121/66
[2019-03-14] MEDS: ALPRAZolam 0.5mg tab ORAL PRN (01:59)
[2019-03-14 04:00] VITALS: BP 151/60
[2019-03-14] MEDS: Sucralfate 1gm tab ORAL SCH ×2 (06:45→11:30)
--- NOTE | 2019-03-14 07:23 | General Progress Note ---
Assessment/Plan Problem List: (1) possible knee and hip fx (2) Hip fracture ICD Codes: S72.009A - Fracture of unspecified part of neck of unspecified femur , initial encounter for closed fracture SNOMED: 997855830 (3) Intractable pain ICD Codes: R52 - Pain, unspecified SNOMED: 60941370 Status: stable, progressing Assessment/Plan: stable cont current rx dc planning to snf pt/ot Subjective Allergies: Coded Allergies: ASPIRIN (Verified Allergy, Unknown, 09/01/16) CLARITHROMYCIN (Verified Allergy, Unknown, 09/01/16) PENICILLINS (Verified Allergy, Unknown, 09/01/16) SULFA (SULFONAMIDE ANTIBIOTICS) (Verified Allergy, Unknown, 09/01/16) All Systems: reviewed and negative except above Subjective pain better controlled. xrays reviewed. no fever or chills. pain better controlled Objective Last 24 Hour Vital Signs Date Time Temp Pulse Resp B/P (MAP) Pulse Ox O2 Delivery O2 Flow Rate FiO2 03/14/19 04:00 97.3 82 16 151/60 (90) 96 03/14/19 00:00 97.3 81 18 121/66 (84) 96 03/13/19 21:00 Room Air 03/13/19 20:00 98.5 77 18 143/80 (101) 96 03/13/19 18:38 97.6 03/13/19 16:00 97.6 70 18 144/75 (98) 93 03/13/19 15:49 98.0 03/13/19 12:00 98.0 75 18 129/64 (85) 94 03/13/19 11:56 98.3 03/13/19 09:00 Room Air 03/13/19 08:00 98.3 74 18 146/72 (96) 94 Intake and Output 03/13/19 03/14/19 19:00 07:00 Intake Total 360 ml Balance 360 ml Intake Oral 360 ml # Voids 2 3 Height (Feet): 5 Height (Inches): 6.00 Weight (Pounds): 166 Objective General Appearance: WD/WN, alert Neck: supple Cardiovascular: normal peripheral pulses, normal rate, regular rhythm Respiratory/Chest: chest wall non-tender, lungs clear, normal breath sounds Abdomen: normal bowel sounds, non tender, soft, no organomegaly Edema: no edema noted Arm (L), no edema noted Arm (R), no edema noted Leg (L), no edema noted Leg (R), no edema noted Pedal (L), no edema noted Pedal (R), no edema noted 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
--- NOTE | 2019-03-14 07:24 | NUR ---
NURSE NOTES: RN received pt in stable condition, sleeping in bed. No acute distress or SOB. Bed in low, locked position, call light within reach. Discharge order this am to SNF. RN to f/u with case management. Will continue plan of care.
[2019-03-14 08:00] VITALS: BP 118/71
--- NOTE | 2019-03-14 08:04 | NUR ---
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 RN sent message to MD. Awaiting call back.
[2019-03-14] MEDS: Vitamin D 1000 IU Tab ORAL SCH ×2 (09:00→10:35)
[2019-03-14] MEDS: Miralax 17gm pkt ORAL SCH (09:00)
[2019-03-14] MEDS: PARoxetine 20mg tab ORAL SCH ×2 (09:00→10:35)
[2019-03-14] MEDS: Heparin 5000 units/ml inj SUBQ SCH (09:00)
[2019-03-14] MEDS: Lyrica 75mg cap ORAL SCH ×4 (09:00→13:24)
[2019-03-14] MEDS: Tolterodine 2mg tab ORAL SCH ×2 (09:00→10:35)
--- NOTE | 2019-03-14 09:48 | NUR ---
DISCHARGE PLANNED DISCHARGE ORDER NOTED PATIENT WILL BE RETURNING TO [facility] ROOM 2B SKILLED T: [phone] FOR NURSE TO NURSE REPORT [facility] HAS BEEN ARRANGED FOR 1300 DIRECTOR STATISTICAL PROGRAMMING STRATEGIC DEBRIEFING OFFICER SPOKE WITH SON MEG WHO IS IN AGREEMENT WITH DISCHARGE PLAN TRANSFER FORM COMPLETED
--- NOTE | 2019-03-14 10:41 | NUR ---
NURSE NOTES: RN woke pt from sleep to ask if she wanted morning medication, including pain medication. Pt stated yes. RN removed from Pyxis. Pt then refused medication.
[2019-03-14 12:00] VITALS: BP 150/72
--- NOTE | 2019-03-14 13:30 | NUR ---
NURSE NOTES: Pt discharged in stable condition to [facility]. Pt vitals WNL, no acute distress, or SOB at time of EMS pickup. RN gave report to Berla and SNF. Pt hx, allergies, discharge meds, diet, reviewed. Pt d/c'd with regular diet. Last BM 03/14/19. Discharge packet sent with EMS personal. Belongings accounted for with pt. ID and arm band removed.
--- NOTE | 2019-03-15 09:03 | Discharge Summary ---
Discharge Summary Discharge Summary _ DATE OF ADMISSION: 03/11/2019 DATE OF DISCHARGE: 03/14/2019 DISCHARGED BY: Dr. Rick Kay BRIEF HOSPITAL COURSE: Patient is a 78-year-old female, with history of degenerative disc disease and osteoarthritis. Patient is status post right hip revision and right total knee replacement several months ago. She had been doing relatively well until recently, she had worsening pain at the right leg. She was unable to participate in any therapy. She complained of right-sided chest pain as well as shortness of breath. Symptoms were intermittent, but the right leg and thigh pain had gotten worse to the point where she was unable to ambulate or bear any weight. She denied trauma. Denied fever or chills. In light of her intractable pain, she was admitted for further evaluation and care. She was admitted to medical floor. half-way medications were continued. She was given pain management. Imaging of the right hip and knee were obtained. ESR was 48. Venous duplex of the lower extremity was ordered but patient refused. X-ray of the right knee showed extensive postsurgical changes. There was no definite acute bony trauma seen. Pelvic and hip x-ray did not show any definite acute bony trauma. There were postsurgical changes on the right hip and femur. Urine culture showed growth of E. coli. Pain was better controlled. Imaging was negative for fractures. [facility] FINAL DIAGNOSES: Intractable right leg pain Possible knee and hip fracture DISPOSITION: Patient was discharged to a SNF. DISCHARGE MEDICATIONS: Refer to Discharge Medication List. I have been assigned to complete a discharge summary on this account, I was not involved with the patient's management. Ariana Santos NP Mar 15, 2019 09:03
== END 2019-03-14 13:49 | DRG 562 ==
LOC: 4E 19:18
DX: S82.001A Unspecified fracture of right patella, initial encounter for closed fracture (principal); S72.001A Fracture of unspecified part of neck of right femur, initial encounter for closed fracture; M19.90 Unspecified osteoarthritis, unspecified site; M79.7 Fibromyalgia; Z88.0 Allergy status to penicillin; Z88.2 Allergy status to sulfonamides; X58.XXXA Exposure to other specified factors, initial encounter; Z88.6 Allergy status to analgesic agent
CPT/HCPCS: 36415; 73521; 81003; 83880; 84443; 85007; 85025; 85651; 87081; 87086; 87181